=== PATIENT | male | born 1995 | race Caucasian/White ===

== ENCOUNTER 2017-11-20 02:11 | Emergency (ER) | payer MEDICAID ==
[2017-11-20 02:49] VITALS: BP 125/88
--- NOTE | 2017-11-20 03:00 | EDM.PDOC ---
ED HPI GENERAL MEDICAL PROBLEM - General Chief Complaint: Gastrointestinal Problem Stated Complaint: DIARREAH AND NAUSEA [id number] Time Seen by Provider: 11/20/17 02:55 Source of Information: Reports: Patient, Family, RN Notes Reviewed - History of Present Illness INITIAL COMMENTS - FREE TEXT/NARRATIVE: C/O diarrhea started yesterday am. Notes ate taco's night before and lettuce tasted awful. Other members had upset stomach after supper but no one with diarrhea. Stools watery. Able to drink. Reports 3-4 glasses of water after each stool. Tried one dose of immodium at 0100. Treatments BRAND ENGINEER: Reports: Other (see below) Other Treatments BRAND ENGINEER: Imodium - Related Data Allergies Allergy/AdvReac Type Severity Reaction Status Date / Time No Known Allergies Allergy Verified 11/20/17 02:50 Home Meds: Home Meds . [No Known Home Meds] 06/10/14 [History] Past Medical History - Past Health History Medical/Surgical History: Denies Medical/Surgical History Social & Family History - Tobacco Use Smoking Status *Q: Never Smoker Second Hand Smoke Exposure: Yes - Caffeine Use Caffeine Use: Reports: Soda - Alcohol Use Days Per Week of Alcohol Use: 0 - Recreational Drug Use Recreational Drug Use: No ED ROS GENERAL - Review of Systems Review Of Systems: See Below Constitutional: Denies: Fever HEENT: Reports: No Symptoms Respiratory: Reports: No Symptoms Cardiovascular: Reports: No Symptoms GI/Abdominal: Reports: Diarrhea (10+ times today watery) : Reports: No Symptoms Musculoskeletal: Reports: No Symptoms ED EXAM, GI/ABD - Physical Exam Exam: See Below Exam Limited By: No Limitations General Appearance: Alert, No Apparent Distress Eyes: Bilateral: Normal Appearance Ears: Normal External Exam Nose: Normal Inspection Throat/Mouth: Normal Inspection, Normal Lips Head: Atraumatic, Normocephalic Neck: Normal Inspection, Lymphadenopathy (L), Lymphadenopathy (R) Cardiovascular: Normal Peripheral Pulses, Regular Rate, Rhythm GI/Abdominal Exam: Abnormal Bowel Sounds (hyperacticve). No: Distended, Guarding, Tender Back Exam: Normal Inspection Neurological: Alert, Oriented Psychiatric: Normal Affect Skin Exam: Warm, Dry, Intact, Normal Color Course - Vital Signs Last Recorded V/S: Last Vital Signs Temp 98.4 F 11/20/17 02:46 Pulse 95 11/20/17 02:46 Resp 16 11/20/17 02:46 BP 125/88 11/20/17 02:46 Pulse Ox 95 11/20/17 02:46 - Re-Assessments/Exams Free Text/Narrative Re-Assessment/Exam: 11/20/17 03:03 Patient refuses lab studies. States able to take fluids so will just continue. Departure - Departure Time of Disposition: 03:00 Disposition: Home, Self-Care 01 Condition: Good Clinical Impression: Diarrhea Qualifiers: Diarrhea type: unspecified type Qualified Code(s): R19.7 - Diarrhea, unspecified - Discharge Information Instructions: Dehydration, Adult, [id number], Diarrhea, Adult, [id number] Additional Instructions: increase fluid intake immodium OTC per label up to 6 tablets per day follow up if symptoms continue, dizzy fever unable to eat, worsening pain
== END 2017-11-20 03:10 | disposition home or self-care (01) ==
LOC: DL.ED 02:11
DX: R19.7 Diarrhea, unspecified (principal); Z77.22 Contact with and (suspected) exposure to environmental tobacco smoke (acute) (chronic)
CPT/HCPCS: 99283

== ENCOUNTER 2018-01-17 20:43 | Emergency (ER) | payer MEDICAID ==
[2018-01-17 21:18] VITALS: BP 136/81
[2018-01-17] MEDS ORDERED: Amoxicillin 500 MG Cap PO ONE (21:46)
--- NOTE | 2018-01-17 21:49 | EDM.PDOC ---
ED HPI GENERAL MEDICAL PROBLEM - General Chief Complaint: ENT Problem Stated Complaint: EAR INFECTION [id number] Time Seen by Provider: 01/17/18 21:30 Source of Information: Reports: Patient History Limitations: Reports: No Limitations - History of Present Illness INITIAL COMMENTS - FREE TEXT/NARRATIVE: ED with c/o of left ear pain starting yesterday, worse today, no fever, some congestion. Has had ear infections in past Left Ear Pain Score (Numeric/FACES): 5 - Related Data Allergies Allergy/AdvReac Type Severity Reaction Status Date / Time No Known Allergies Allergy Verified 01/17/18 21:18 Home Meds: Home Meds . [No Known Home Meds] 06/10/14 [History] Past Medical History - Past Health History Medical/Surgical History: Denies Medical/Surgical History HEENT History: Reports: Other (See Below) Other HEENT History: states has had several ear infections - Past Surgical History HEENT Surgical History: Reports: None Social & Family History - Family History Family Medical History: Noncontributory - Tobacco Use Smoking Status *Q: Unknown Ever Smoked Second Hand Smoke Exposure: Yes - Caffeine Use Caffeine Use: Reports: Soda - Alcohol Use Days Per Week of Alcohol Use: 0 - Recreational Drug Use Recreational Drug Use: No ED ROS ENT - Review of Systems Review Of Systems: See Below Constitutional: Denies: Fever HEENT: Reports: Ear Pain. Denies: Throat Pain Respiratory: Reports: No Symptoms Cardiovascular: Reports: No Symptoms Endocrine: Reports: No Symptoms GI/Abdominal: Reports: No Symptoms : Reports: No Symptoms Musculoskeletal: Reports: No Symptoms Skin: Reports: No Symptoms ED EXAM, ENT - Physical Exam Exam: See Below Exam Limited By: No Limitations General Appearance: Alert, No Apparent Distress Eye Exam: Bilateral Eye: EOMI Ears: TM Erythema (left), TM Fluid Nose: Normal Inspection Mouth/Throat: Normal Inspection Head: Atraumatic, Normocephalic Neck: Normal Inspection Respiratory/Chest: No Respiratory Distress, Lungs Clear, Normal Breath Sounds Cardiovascular: Normal Peripheral Pulses, Regular Rate, Rhythm GI/Abdominal: Normal Bowel Sounds Extremities: Normal Inspection Neurological: Alert, Oriented Skin: Warm, Dry, Intact Course - Vital Signs Last Recorded V/S: Last Vital Signs Temp 98.5 F 01/17/18 21:00 Pulse 90 01/17/18 21:00 Resp 18 01/17/18 21:00 BP 136/81 01/17/18 21:00 Pulse Ox 96 01/17/18 21:00 Departure - Departure Time of Disposition: 21:48 Disposition: Home, Self-Care 01 Condition: Good Clinical Impression: Otitis media Qualifiers: Otitis media type: serous Chronicity: acute Laterality: left Recurrence: not specified as recurrent Qualified Code(s): H65.02 - Acute serous otitis media, left ear - Discharge Information Instructions: Otitis Media, Adult, [id number] Additional Instructions: Amoxicillin 500mg one three times daily for one week tylenol or ibuprofen for discomfort follow up as needed
== END 2018-01-17 21:58 | disposition home or self-care (01) ==
LOC: DL.ED 20:43
DX: H65.02 Acute serous otitis media, left ear (principal); Z77.22 Contact with and (suspected) exposure to environmental tobacco smoke (acute) (chronic)
CPT/HCPCS: 99282; A9270

== ENCOUNTER 2021-12-15 13:06 | Emergency (ER) | payer MEDICAID ==
[2021-12-15 14:55] VITALS: BP 132/89; PULSE 97
== END 2021-12-15 15:15 | disposition home or self-care (01) ==
LOC: DL.ED 13:06
DX: J10.1 Influenza due to other identified influenza virus with other respiratory manifestations (principal); H73.893 Other specified disorders of tympanic membrane, bilateral; Z88.7 Allergy status to serum and vaccine
CPT/HCPCS: 99283

== ENCOUNTER 2023-05-14 21:32 | Emergency (ER) | payer SELFPAY ==
[2023-05-14 23:03] VITALS: BP 122/83; PULSE 102
== END 2023-05-14 23:11 | disposition home or self-care (01) ==
LOC: DL.ED 21:32
DX: S60.032A Contusion of left middle finger without damage to nail, initial encounter (principal); Z88.7 Allergy status to serum and vaccine; Z86.16 Personal history of COVID-19; W23.1XXA Caught, crushed, jammed, or pinched between stationary objects, initial encounter; Y99.0 Civilian activity done for income or pay
CPT/HCPCS: 73140-F2; 99282; 99283